=== PATIENT | female | born 1950 | race African-American/Black ===

== ENCOUNTER → 2016-05-26 | Outpatient (CLI) | payer OTHER ==
[~2016-05-26] VITALS: Ht 152.4 cm; Wt 86.2 kg
[~2016-05-26] MED LIST: ADVAIR 250-501 EACH INH; ALBUTEROL2.5 MG/0.5 INH; AMITRIPTYLINE H25 M2 PO; ASPIR 8181 MG PO; BUSPIRONE HCL15 MG PO; CYMBALTA60 MG PO; ESTRACE0.5 MG PO; HYDROCHLOROTHIA25 M2 PO; HYDROCODONE-APA1 TA1 PO; LANTUS SUBQ; NORCO 10-325 T1 EACH PO; NORVASC5 MG PO; NOVOLOG100 UNIT/1 SUBQ; OMEPRAZOLE20 M1 PO; OXYCODONE HCL30 MG PO; STOOL SOFTENER1 EAC2 PO; VALSARTAN-HCTZ1 EAC1 PO; ZOCOR20 MG PO
--- NOTE | ~2016-05-26 | HPC ---
[facility] [place] [address] PAIN MANAGEMENT CONSULTATION Name: WESLEY DUKES Room #: REG CASEY Man#: [id number] Admission: 05/26/16 Attend Phys: Camacho Díaz DO Discharge: Date of : 54 Report #: [id number] THIS REPORT FOR: //name// CC: Dr. Hilda PEARCE DATE OF SERVICE: 05/26/2016 REFERRING PHYSICIAN: Dr. Pearce. CHIEF COMPLAINT: Neck pain, upper extremity pain with paresthesias, fibromyalgia pain and left knee pain. HISTORY OF PRESENT ILLNESS: As you know, the patient is a 65-year-old female referred to our service in 09/2015 for cervical radiculopathy. She was diagnosed with cervical radicular symptoms secondary to cervical spondylosis and neural foraminal stenosis. We offered to provide the patient with epidural injection under fluoroscopic guidance at that visit. She chose not to undergo the recommended procedure. She has been lost to followup visit. She returns today in followup visit stating that she is taking oxycodone 30 mg every 3-5 hours p.r.n. for pain and in conjunction with hydrocodone PRN for BTP. She states that her primary care physician, Dr. Pearce is no longer writing her medications. She was subsequently referred to Pain, who wrote medications for about 2 months and sent the patient out for psychiatric evaluation and subsequently released her care. She was then receiving medications from [facility], but the patient indicates that there were some financial issues there and she could no longer receive medication therapy through them. She referred herself to our clinic for evaluation for generalized pain disorder, requesting opioid medication. There is no information of any new changes in her cervical issues. The fibromyalgia pain, as you are aware, is not treated with opioid medications and her left knee pain should be treated from an orthopedic standpoint and should not be on the long-term medications. She returns today in followup visit reporting pain scores out of proportion to the findings in her physical exam, placing pain at 8/10. ALLERGIES: CODEINE, ZOLPIDEM, TRAMADOL, TRAZODONE, CYCLOBENZAPRINE and QUETIAPINE. CURRENT MEDICATIONS: Per the patient, valsartan/hydrochlorothiazide 160/12.5 mg once a day, amitriptyline 25 mg p.o. at bedtime, hydrocodone 7.5/325 twice a day, duloxetine 60 mg in the morning, buspirone 15 mg 3 times a day, oxycodone 30 mg every 4-5 hours p.r.n. for pain estradiol 0.5 mg once a day, simvastatin 20 mg per day, albuterol 2 puffs q. 4 hours p.r.n., fluticasone/salmeterol 250/50 one puff b.i.d., Lantus unknown units before bedtime, NovoLog sliding scale, Omeprazole 20 mg per day and Senokot-S 1 tab per day. [address] [address] PAIN MANAGEMENT CONSULTATION Name: WESLEY DUKES Room #: JERICA Man#: [id number] Admission: 05/26/16 Attend Phys: Camacho Díaz DO Discharge: Date of : 54 Report #: [id number] IMAGING: No new imaging available. PHYSICAL EXAMINATION: VITAL SIGNS: Blood pressure 158/114, pulse is 97 and respiratory rate 20, unlabored. The patient is 98% on room air. Height 5 feet tall, weight 190 pounds, BMI calculated at 37.1. GENERAL: Well-developed, well-nourished, well-hydrated, morbidly obese 65-year-old female appearing her stated age. She is emotionally labile. She is placing pain score at 8/10. HEENT: Normocephalic, atraumatic. Pupils equal, round and reactive to light. Extraocular muscles are intact. Sclerae nonicteric, without injection. Speech is somewhat pressured, but intelligible. LUNGS: Clear. No wheezes, rhonchi or rales. CARDIOVASCULAR: Regular. No appreciable gallop or rub. ABDOMEN: Soft, obese, nontender and nondistended. EXTREMITIES: Show no clubbing, no cyanosis and no edema. MUSCULOSKELETAL: The patient shows no cervical radicular symptoms with Spurling's test. Active and passive range of motion of left knee causes some intensification of pain, though the knee joint itself does not look grossly deformed. Pain is elicited with palpation at every single point of contact. ASSESSMENT: 1. Generalized pain disorder. 2. Fibromyalgia. 3. Opioid dependency. 4. Left knee pain. 5. Cervical radiculopathy. PLAN: 1. The patient has returned today in followup, self reporting pain in the neck and upper extremities bilaterally. Generalized body pain due to fibromyalgia and left knee pain. No documentation indicating extent of knee pathology, but if her knee is as "destroyed by arthritis" as the patient indicates, a total knee arthroplasty would be recommended. The patient apparently had seen orthopedics, but is unsure why "they didn't do surgery on me". She states that she believes this was an insurance issue. I do not have documentation to prove whether or not the patient should even have surgery let alone whether or not this was an insurance issue. We would recommend strongly that if the patient truly has arthritic changes significant enough to cause such severe left knee pain, she should be seen by orthopedics and treated either with injection therapies or surgical options. Referrals can be made to orthopedics at [facility], which will take the patient's insurance. [facility] may also be a facility that she could utilize for treatment. Other referrals could be to [facility] for the orthopedics. 2. In regards to the patient's opioid medications, we have seen the patient in [facility] [address] [place] [address] PAIN MANAGEMENT CONSULTATION Name: WESLEY DUKES Room #: REG [facility]..#: [id number] Admission: 05/26/16 Attend Phys: Camacho Díaz DO Discharge: Date of : 54 Report #: [id number] the past and advise the patient we would not be involved in her opioid therapy. I do not feel comfortable with the level of opioids she is on with the lack of any major pathology. A 30 mg oxycodone, 3-5 times a day along with hydrocodone is well over the CDC's recommended levels of opioids and I am not at all comfortable being involved in her opioid management. She apparently has been seen by multiple pain services, treated temporarily and then discharged for reasons the patient is not willing to provide. I strongly recommend the patient come off these medications. Most rapid approach would be through a detoxification unit such as [facility]. This can also be assisted by an child welfare specialist if referrals need to be made or the patient can be slowly weaned from these opioids through her primary care team. We at [facility] will not be involved in this patient's opioid management as I do not feel they are indicated in her case. In fact, there is a strong relative contraindication utilizing opioids with fibromyalgia patients. If pain in the knee is as intense as she indicates she should be evaluated and treated by orthopedics and does not require chronic opioids. Cervical radicular symptoms were to be addressed with epidural injections, but she chose not to undergo this procedure in the past and has also chose not to undergo the procedure today. 3. We did discuss with the patient cervical radicular symptoms, though her symptoms are relatively nondescript. They do not follow typical radiating distribution patterns for radiculopathy. I believe most of her symptoms are related to arthritic changes in the neck itself, though I do not have imaging available. Recommend strongly the patient use only NSAIDs and neuropathic pain medications and undergo physical therapy, stretching exercises and core strengthening. We did offer the epidural injection that was requested in September to the patient and she has refused to undergo the procedure. 4. We thank the primary team for the opportunity to see the patient back in followup visit. As indicated above, we will not be involved in this patient's opioid management. The patient was unhappy with our discussion today. She did not feel that she received what she was searching for, which in our opinion, was ongoing medication therapy, despite the fact that these medications are not indicated for long-term treatment for chronic pain. We did offer evidence-based appropriate treatments for her underlying pain issues and she chose not to follow our medical advice. We will be discharging her back to her primary care team. <ELECTRONICALLY SIGNED> By: Camacho Díaz DO 05/27/16 [id number] Camacho Díaz DO /nt
[2016-05-26 11:20] VITALS: BP 158/114
== END | disposition home or self-care (01) ==
LOC: PAIN 07:23
DX: M79.7 Fibromyalgia (principal); M25.562 Pain in left knee; M54.12 Radiculopathy, cervical region; F11.20 Opioid dependence, uncomplicated; G43.909 Migraine, unspecified, not intractable, without status migrainosus; F17.200 Nicotine dependence, unspecified, uncomplicated